=== PATIENT | female | born 1980 | race Caucasian/White ===

== ENCOUNTER 2016-04-13 21:30 | Emergency (ER) | payer MEDICAID ==
[~2016-04-13] VITALS: Ht 172.7 cm; Wt 99.8 kg
[2016-04-13 21:57] VITALS: BP 146/79
--- NOTE | 2016-04-13 21:58 | NUR ---
PT WAS ASSESS IN TRIAGE BY ER MD DR SQUIRES. DR SQUIRES STATES PT IS NOT ACTIVELY HAVING A STROKE, PT SENT BACK TO [facility]
--- NOTE | 2016-04-13 23:18 | NUR ---
PT TAKEN TO BED 3
--- NOTE | 2016-04-13 23:24 | NUR ---
Dr. Clay evaluating patient at bedside.
[2016-04-13] MEDS ORDERED: NACL 0.9% 1,000 ML IV SCH (23:26)
[2016-04-13] MEDS ORDERED: ONDANSETRON 4 MG/2 ML VIAL IVP ONE (23:30)
[2016-04-13] MEDS ORDERED: HYDROmorphone 1 MG/ML AMP IVP ONE (23:30)
--- NOTE | 2016-04-13 23:38 | NUR ---
PATIENT PRESENTS TO ED WITH LANCASTER SINCE WEDNESDAY . PT DENIES N/V/D; SKIN IS PINK/WARM/DRY; AAOX4 WITH EVEN AND STEADY GAIT; LUNGS CLEAR BL; HR EVEN AND REGULAR; PT DENIES ANY FEVER, CP, SOB, OR COUGH AT THIS TIME; PATIENT STATES PAIN OF 10/10 AT THIS TIME; VSS; PATIENT POSITIONED FOR COMFORT; HOB ELEVATED; BEDRAILS UP X2; BED DOWN. ER MD MADE AWARE OF PT STATUS.
[2016-04-14] MEDS ORDERED: diphenhydrAMINE 50 MG/ML VIAL IVP ONE (00:20)
--- NOTE | 2016-04-14 00:43 | NUR ---
PT LEFT FOR CT VIA WC IN STABLE CONDITION
[2016-04-14 01:59] VITALS: BP 137/68
--- NOTE | 2016-04-14 01:59 | NUR ---
Patient discharged with v/s stable. Written and verbal after care instructions given and explained. Patient alert, oriented and verbalized understanding of instructions. Ambulatory with steady gait. All questions addressed prior to discharge. ID band removed. Patient advised to follow up with PMD. Rx of Roulette and Zofran given. Patient educated on indication of medication including possible reaction and side effects. Opportunity to ask questions provided and answered.
[2016-05-10] MEDS ORDERED: CYMBALTA20 MG PO (15:59)
[2016-05-10] MEDS ORDERED: PLAQUENIL200 M1 PO (15:59)
[2016-05-11] MEDS ORDERED: IMITREX50 MG PO (12:19)
[2016-05-12] MEDS ORDERED: NORCO 10-325 T1 EACH PO (13:09)
== END 2016-04-14 00:59 | disposition home or self-care (01) ==
LOC: MED 21:30
DX: G43.909 Migraine, unspecified, not intractable, without status migrainosus (principal); E86.0 Dehydration; M32.9 Systemic lupus erythematosus, unspecified; M35.00 Sjogren syndrome, unspecified
CPT/HCPCS: 36415; 70450; 80053; 81001; 81025; 82150; 83690; 85025; 87086; 96361; 96374; 96375; 99285; J1170; J1200; J2405; J7030

== ENCOUNTER 2016-04-26 19:36 | Emergency (ER) | payer MEDICAID ==
[~2016-04-26] VITALS: Ht 152.4 cm; Wt 99.8 kg
[2016-04-26 19:41] VITALS: BP 122/71
--- NOTE | 2016-04-26 20:00 | NUR ---
TO ER BED 4
--- NOTE | 2016-04-26 20:25 | NUR ---
PATIENT PRESENTS TO ED WITH RUQ ABD PAIN WITH N/V [id number] . PT STATES THE PAIN IS RADIATING TO HER RIGHT SHOULDER. PT HAS HX OF LUPUS, GALLSTONES, AND FIBROMYALGIA . DENIES DIARRHEA; SKIN IS PINK/WARM/DRY; AAOX4 WITH EVEN AND STEADY GAIT; LUNGS CLEAR BL; HR EVEN AND REGULAR; PT DENIES ANY FEVER, CP, SOB, OR COUGH AT THIS TIME; PATIENT STATES PAIN OF 10/10 AT THIS TIME; VSS; PATIENT POSITIONED FOR COMFORT; HOB ELEVATED; BEDRAILS UP X2; BED DOWN. ER MD MADE AWARE OF PT STATUS.
[2016-04-26] MEDS ORDERED: NACL 0.9% 500 ML IV ONE (20:56)
[2016-04-26] MEDS ORDERED: HYDROmorphone 1 MG/ML AMP IVP ONE (21:00)
[2016-04-26] MEDS ORDERED: ONDANSETRON 4 MG/2 ML VIAL IVP ONE (21:00)
[2016-04-26] MEDS ORDERED: diphenhydrAMINE 50 MG/ML VIAL IVP ONE (22:10)
--- NOTE | 2016-04-26 22:28 | NUR ---
Patient appears to be resting comfortably in bed. Vital Signs within normal limits. Respirations even and unlabored. SON AT BEDSIDE
[2016-04-26] MEDS ORDERED: fentaNYL 0.05 MG/ML VIAL IVP ONE (23:00)
--- NOTE | 2016-04-26 23:28 | NUR ---
PT VERBALIZED THAT SON WILL BE DRIVING HER HOME FROM HOSPITAL AT THIS TIME
--- NOTE | 2016-04-26 23:28 | NUR ---
Patient discharged with v/s stable. Written and verbal after care instructions given and explained. Patient alert, oriented and verbalized understanding of instructions. Ambulatory with steady gait. All questions addressed prior to discharge. ID band removed. Patient advised to follow up with PMD. Rx of ZOFRAN, TRAMADOL AND NORCO given. Patient educated on indication of medication including possible reaction and side effects. Opportunity to ask questions provided and answered.
[2016-04-26 23:35] VITALS: BP 120/72
[2016-05-10] MEDS ORDERED: PLAQUENIL200 M1 PO (15:59)
[2016-05-10] MEDS ORDERED: CYMBALTA20 MG PO (15:59)
[2016-05-11] MEDS ORDERED: IMITREX50 MG PO (12:19)
[2016-05-12] MEDS ORDERED: NORCO 10-325 T1 EACH PO (13:09)
== END 2016-04-26 23:35 | disposition home or self-care (01) ==
LOC: MED 19:36
DX: R10.11 Right upper quadrant pain (principal); R03.0 Elevated blood-pressure reading, without diagnosis of hypertension; M32.9 Systemic lupus erythematosus, unspecified; M79.7 Fibromyalgia; Z87.19 Personal history of other diseases of the digestive system; Z88.8 Allergy status to other drugs, medicaments and biological substances
CPT/HCPCS: 36415; 76705; 80053; 81002; 81025; 82150; 83690; 85025; 96361; 96374; 96375; 99285; J1170; J1200; J2405; J3010; J7030; Q0092

== ENCOUNTER 2016-05-02 22:12 | Emergency (ER) | payer MEDICAID ==
[~2016-05-02] VITALS: Ht 152.4 cm; Wt 102.1 kg
[2016-05-02 22:17] VITALS: BP 133/82
--- NOTE | 2016-05-02 22:29 | NUR ---
PT TAKEN TO BED 5
--- NOTE | 2016-05-02 22:35 | NUR ---
35Y F BIB FAMILY C/O OF PAIN TO RT KNEE AND HEAD. STATES SHE 'S BEEN VOMITTING X2 DAYS.TODAY SHE PASSED OUT AND FELL ON HER KNEE. C/O OF LANCASTER. PAIN 10/10 IN SCALE. VSS; PATIENT POSITIONED FOR COMFORT; HOB ELEVATED; BEDRAILS UP X2; BED DOWN. ER MD MADE AWARE OF PT STATUS.
--- NOTE | 2016-05-02 22:50 | NUR ---
DR. MAYES AT BEDSIDE EVALUATING PT.
--- NOTE | 2016-05-02 22:50 | NUR ---
Dr. Lauren evaluating patient at bedside.
[2016-05-02] MEDS ORDERED: NACL 0.9% 1,000 ML IV ONE (22:55)
[2016-05-02] MEDS ORDERED: ONDANSETRON 4 MG/2 ML VIAL IVP ONE (22:55)
[2016-05-02] MEDS ORDERED: MORPHINE SULFATE 4 MG/ML SYR IVP ONE (22:55)
[2016-05-02] MEDS ORDERED: diphenhydrAMINE 50 MG/ML VIAL IVP ONE (23:35)
--- NOTE | 2016-05-03 00:40 | NUR ---
DR. MAYES REEVAUATING PT AT BEDSIDE
[2016-05-03] MEDS ORDERED: MORPHINE SULFATE 4 MG/ML SYR IVP ONE (00:45)
--- NOTE | 2016-05-03 01:20 | NUR ---
IV removed, catheter intact and site benign. Applied folded 4x4 gauze and tape to stop bleeding.
[2016-05-03 01:30] VITALS: BP 118/70
--- NOTE | 2016-05-03 01:30 | NUR ---
Patient discharged with v/s stable BY DR. MAYES. Written and verbal after care instructions given and explained BY DR. MAYES. Patient alert, oriented and verbalized understanding of instructions. Ambulatory with steady gait. All questions addressed prior to discharge BY DR. MAYES. ID band removed. Patient advised to follow up with PMD BY. DR. MAYES. Rx of ZOFRAN 8MG TAB 1 TAB 3 TIMES A DAY NEEDED, TRAMADOL HCL 50MG TAB 1 TAB EVERY 8 HOURS NEEDED given BY DR. MAYES. Patient educated on indication of medication including possible reaction and side effects BY. DR. MAYES. Opportunity to ask questions provided and answered BY DR. MAYES.
[2016-05-10] MEDS ORDERED: PLAQUENIL200 M1 PO (15:59)
[2016-05-10] MEDS ORDERED: CYMBALTA20 MG PO (15:59)
[2016-05-11] MEDS ORDERED: IMITREX50 MG PO (12:19)
[2016-05-12] MEDS ORDERED: NORCO 10-325 T1 EACH PO (13:09)
== END 2016-05-03 01:30 | disposition home or self-care (01) ==
LOC: MED 22:12
DX: S80.01XA Contusion of right knee, initial encounter (principal); M32.8 Other forms of systemic lupus erythematosus; W18.30XA Fall on same level, unspecified, initial encounter; Y93.89 Activity, other specified; Y92.89 Other specified places as the place of occurrence of the external cause; Y99.8 Other external cause status; Z88.8 Allergy status to other drugs, medicaments and biological substances
CPT/HCPCS: 36415; 80053; 81001; 81025; 82150; 83690; 85025; 87086; 96361; 96374; 96375; 96376; 99284; J1200; J2270; J2405; J7030

== ENCOUNTER 2016-05-10 15:43 | Inpatient (IN) | payer MEDICAID ==
[~2016-05-10] VITALS: Ht 152.4 cm; Wt 82.6 kg
[2016-05-10 15:59] VITALS: BP 121/83
[2016-05-10] MEDS ORDERED: HYDR200T5 PO (15:59)
[2016-05-10] MEDS ORDERED: DULO20EC PO (15:59)
--- NOTE | 2016-05-10 16:07 | NUR ---
Patient to bed 03.
--- NOTE | 2016-05-10 16:15 | NUR ---
PATIENT PRESENTS TO ED WITH HEADACHE S/P SYNCOPE . PT STATES . DENIES N/V/D; SKIN IS PINK/WARM/DRY; AAOX4 WITH EVEN AND STEADY GAIT; LUNGS CLEAR BL; HR EVEN AND REGULAR; PT DENIES ANY FEVER, CP, SOB, OR COUGH AT THIS TIME; PATIENT STATES PAIN OF 8/10 AT THIS TIME; VSS; PATIENT POSITIONED FOR COMFORT; HOB ELEVATED; BEDRAILS UP X2; BED DOWN. ER MD MADE AWARE OF PT STATUS.
[2016-05-10 16:31] LABS: BASOPHILS # (AUTO) 0.2 K/uL (0.00-0.22); BASOPHILS % (AUTO) 1.4 % (0.0-2.0); EOSINOPHILS # (AUTO) 0.2 K/uL (0-0.4); EOSINOPHILS % (AUTO) 1.8 % (0.0-4.0); HEMATOCRIT 34.7 % (36-48); HEMOGLOBIN 11.4 g/dL (12.0-16.0); LYMPHOCYTES % (AUTO) 18.7 % (20.5-51.1); MEAN CORPUSCULAR HEMOGLOBIN 29 pg (27-31); MEAN CORPUSCULAR HGB CONC 33 g/dL (33-37); MEAN CORPUSCULAR VOLUME 88 fL (80-94); MONOCYTES # (AUTO) 0.6 K/uL (0.8-1.0); MONOCYTES % (AUTO) 5.3 % (1.7-9.3); NEUTROPHILS # (AUTO) 7.9 K/uL (1.8-7.7); NEUTROPHILS % (AUTO) 72.8 % (42.2-75.2); PLATELET COUNT (AUTO) 335 K/uL (140-450); RED BLOOD CELL COUNT(AUTO) 3.95 MIL/uL (4.20-5.40); RED CELL DISTRIBUTION WIDTH 12.4 % (11.6-13.7); WHITE BLOOD COUNT (AUTO) 10.9 K/uL (4.8-10.8)
[2016-05-10] MEDS ORDERED: ONDANSETRON 4 MG/2 ML VIAL IVP ONE (16:45)
[2016-05-10] MEDS ORDERED: HYDROmorphone 1 MG/ML AMP IVP ONE (16:45)
[2016-05-10] MEDS ORDERED: NACL 0.9% 1,000 ML IV ONE (16:45)
[2016-05-10 16:47] LABS: ANION GAP 8.9 (8-16); CALCIUM 8.2 mg/dL (8.5-10.1); CARBON DIOXIDE 27.7 mmol/L (21-32); CREATININE 0.8 mg/dL (0.6-1.3); POTASSIUM 3.6 mmol/L (3.5-5.1)
[2016-05-10] MEDS ORDERED: HYDROmorphone 1 MG/ML AMP ONE (16:50)
[2016-05-10] MEDS ORDERED: ONDANSETRON 4 MG/2 ML VIAL ONE (16:50)
[2016-05-10 16:52] LABS: ALBUMIN 3.4 g/dL (3.4-5.0); TOTAL BILIRUBIN 0.3 mg/dL (0.0-1.0); TOTAL PROTEIN, SERUM 7.7 g/dL (6.4-8.2)
--- NOTE | 2016-05-10 17:00 | NUR ---
PT TO CT SCAN
--- NOTE | 2016-05-10 17:07 | NUR ---
PT RETURNED FROM CT
[2016-05-10] MEDS ORDERED: diphenhydrAMINE 50 MG/ML VIAL IVP ONE ×2 (17:10→18:45)
--- NOTE | 2016-05-10 17:27 | NUR ---
C/O GENERALIZED PRURITUS S/P DILAUDID FOR LANCASTER---MEDICATED WRITTEN---WILL CONTINUE TO OBSERVE---
--- NOTE | 2016-05-10 17:36 | NUR ---
Dr. Salinas evaluating patient at bedside.
[2016-05-10] MEDS ORDERED: SUMAtriptan 6 MG/0.5 ML VIAL SUBQ ONE (17:40)
[2016-05-10] MEDS ORDERED: ALBUTEROL SULFATE/IPRATROPIU 3 ML SOL IH ONE (17:45)
--- NOTE | 2016-05-10 17:45 | NUR ---
PT TO X RAY FOR A TWO VIEW
--- NOTE | 2016-05-10 17:52 | NUR ---
BACK FROM X-RAY
[2016-05-10] MEDS ORDERED: ONDANSETRON 4 MG/2 ML VIAL IVP PRN (18:25)
[2016-05-10] MEDS ORDERED: ACETAMINOPHEN 325 MG TAB PO PRN (18:25)
[2016-05-10] MEDS ORDERED: MECLIZINE 25 MG TAB PO PRN (18:30)
[2016-05-10] MEDS ORDERED: PROCHLORPERAZINE 10 MG/2 ML VIAL IVP PRN ×2 (18:45→19:05)
--- NOTE | 2016-05-10 18:54 | NUR ---
PT C/O HEADACHE--MD NOTIFIED
--- NOTE | 2016-05-10 19:03 | NUR ---
ENDORSED PLAN OF CARE TO NIGHT RN. PT REMAINS IN STABLE CONDITION
--- NOTE | 2016-05-10 19:05 | NUR ---
PER JUDITH, REPORT WAS GIVEN TO MARCY RN, ROOM 111B, CURRENTLY JUST WAITING FOR BED TO BE CLEANED ON TELE FLOOR
--- NOTE | 2016-05-10 19:05 | NUR ---
Pt report given to MARCY RN . Transfer of care at this time.
--- NOTE | 2016-05-10 19:05 | NUR ---
Patient will be admitted to care of DR LINK. Admited to TELE 111B. Will go to room 111B. Belongings list completed. Report to MARCY GARLAND .
--- NOTE | 2016-05-10 19:15 | NUR ---
REPORT GIVEN TO PAT GARLAND
[2016-05-10 19:26] LABS: CHOL/HDL RATIO 3.5 (1-4.5)
[2016-05-10 20:01] LABS: FREE T4 (FREE THYROXINE) 0.96 ng/dL (0.76-1.46); THYROID STIMULATING HORMONE 1.06 uIU/mL (0.34-3.76)
[2016-05-10 20:25] VITALS: BP 127/72
--- NOTE | 2016-05-10 20:25 | NUR ---
ADMITTED A 35F FROM ER. CAME BY LILLIE WITH C/C VOMITING AND SYNCOPE. DX: SYNCOPE AND DEHYDRATION. AAO X4. ON TELE MONITOR. AMBULATORY BUT INSTRUCTED TO CALL IF NEED TO GET UP TO BATHROOM FOR SAFETY. INITIATE HIGH RISK FOR FALL PROTOCOL. VERBALIZED UNDERSTANDING. IVF INFUSING WELL ON THE RT AC#20. CLEAR AND PATENT. SKIN INTACT. PLAN OF CARE DISCUSSED. BED ON LOW POSITION. CALL LIGHT PLACED WITHIN EASY REACH. WILL CONTINUE TO MONITOR.
[2016-05-10] MEDS: HYDROcodone/APAP 5/325 MG 1 TAB TAB PO PRN (20:41)
--- NOTE | 2016-05-10 21:50 | NUR ---
JONNIE CAROTID US DONE AT BEDSIDE. WILL FOLLOW UP RESULT.
[2016-05-10] MEDS: HYDROXYCHLOROQUINE 200 MG TAB PO SCH (22:08)
[2016-05-10] MEDS: NACL 0.9% 1,000 ML IV SCH (22:08)
[2016-05-10] MEDS ORDERED: PNEUMOCOCCAL VACCINE 23 MCG/0.5 ML VIAL IMVAC SCH (22:45)
--- NOTE | 2016-05-10 22:50 | NUR ---
ASSISTED UP TO BATHROOM . NO DIZZINESS NOTED.
[2016-05-11] VITALS (9 sets, daily range): BP systolic 113–150; BP diastolic 56–89
--- NOTE | 2016-05-11 00:15 | NUR ---
VITAL SIGNS TAKEN, ORTHOSTATIC BP TAKEN AND RECORDER.
[2016-05-11] MEDS ORDERED: PNEUMOCOCCAL VACCINE 23 MCG/0.5 ML VIAL IMVAC SCH (01:50)
--- NOTE | 2016-05-11 02:30 | NUR ---
SLEEPING WELL AT THIS TIME. NO S/S OF ANY DISCOMFORT NOTED.
[2016-05-11] MEDS: NACL 0.9% 1,000 ML IV SCH ×3 (02:44→19:59)
[2016-05-11] MEDS: HYDROcodone/APAP 5/325 MG 1 TAB TAB PO PRN ×2 (04:14→09:21)
--- NOTE | 2016-05-11 04:22 | NUR ---
SCD MACHINE APPLIED TO BOTH LOWER LEGS. PT MADE AWARE OF THE BENEFIT. VERBALIZED UNDERSTANDING.
--- NOTE | 2016-05-11 05:43 | NUR ---
HAS BEEN UP TO BATHROOM WITH STANDBY ASSISTANCE 4 L TIMES DURING THE NIGHT. NO DIZZINESS NOTED.
[2016-05-11 06:19] LABS: BASOPHILS % (AUTO) 0.5 % (0.0-2.0); EOSINOPHILS # (AUTO) 0.2 K/uL (0-0.4); EOSINOPHILS % (AUTO) 2.1 % (0.0-4.0); HEMATOCRIT 31.6 % (36-48); HEMOGLOBIN 10.2 g/dL (12.0-16.0); LYMPHOCYTES # (AUTO) 1.6 K/uL (2.5-16.5); LYMPHOCYTES % (AUTO) 18.4 % (20.5-51.1); MEAN CORPUSCULAR HEMOGLOBIN 29 pg (27-31); MEAN CORPUSCULAR HGB CONC 32 g/dL (33-37); MEAN CORPUSCULAR VOLUME 89 fL (80-94); MONOCYTES # (AUTO) 0.6 K/uL (0.8-1.0); MONOCYTES % (AUTO) 7.1 % (1.7-9.3); NEUTROPHILS # (AUTO) 6.2 K/uL (1.8-7.7); NEUTROPHILS % (AUTO) 71.9 % (42.2-75.2); PLATELET COUNT (AUTO) 294 K/uL (140-450); RED BLOOD CELL COUNT(AUTO) 3.55 MIL/uL (4.20-5.40); RED CELL DISTRIBUTION WIDTH 12.3 % (11.6-13.7); WHITE BLOOD COUNT (AUTO) 8.7 K/uL (4.8-10.8)
[2016-05-11 06:40] LABS: ANION GAP 9.8 (8-16); CALCIUM 7.8 mg/dL (8.5-10.1); CARBON DIOXIDE 25.6 mmol/L (21-32); CREATININE 0.6 mg/dL (0.6-1.3); MAGNESIUM 1.9 mg/dL (1.8-2.4); PHOSPHORUS 2.6 mg/dL (2.5-4.9); POTASSIUM 3.4 mmol/L (3.5-5.1)
[2016-05-11 06:50] LABS: INR 1.1 (0.8-1.2); PARTIAL THROMBOPLASTIN TIME 26.7 secs (22-35.6); PROTHROMBIN TIME 10.3 secs (10.8-13.4)
--- NOTE | 2016-05-11 07:15 | NUR ---
RECEIVED REPORT FROM NIGHT NURSE. PT IS AAOX4, PT ON ROOM AIR, IV TO RIGHT AC 20G INFUSING WELL. SKIN INTACT. INITIAL ASSESSMENT COMPLETED. REVIEWED PLAN OF CARE WITH PT, PT VERBALIZED UNDERSTANDING, ALL SAFETY PRECAUTIONS MET. ALL NEEDS MET. CALL LIGHT WITHIN REACH. WILL CONTINUE TO MONITOR.
--- NOTE | 2016-05-11 07:15 | NUR ---
ENDORSED PT IN STABLE CONDITION TO AM NURSE.
[2016-05-11] MEDS ORDERED: NON-FORMULARY ITEM (Duloxetine HCl* (Cymbalta*) 20 MG) PO SCH (09:00)
--- NOTE | 2016-05-11 09:09 | NUR ---
PATIENT HAS BEEN SCREENED AND CATEGORIZED MODERATE NUTRITION RISK. PATIENT WILL BE SEEN WITHIN 3-5 DAYS OF ADMISSION. 05/13/16-05/15/[address]
--- NOTE | 2016-05-11 09:20 | NUR ---
DUE MEDICATIONS GIVEN. PT TOLERATED WELL. PT C/O HEADACHE 10/01 WILL MEDICATE PER MD ORDERS PT CURRENTLY RESTING IN BED. CALL LIGHT WITHIN REACH. WILL CONTINUE TO MONITOR.
[2016-05-11] MEDS: DOCUSATE SODIUM 100 MG GELCAP PO SCH (09:22)
[2016-05-11] MEDS: HYDROXYCHLOROQUINE 200 MG TAB PO SCH ×2 (09:22→20:12)
--- NOTE | 2016-05-11 09:40 | NUR ---
RIGHT AC IV REMOVED TIP INTACT, NOT FLUSHING WELL. WILL INSERT NEW IV.
--- NOTE | 2016-05-11 10:46 | NUR ---
NEW IV INSERTED TO RIGHT FA 22G. PT TOLERATED WELL.
--- NOTE | 2016-05-11 11:25 | NUR ---
CHECKED IN ON PT. PT CURRENTLY AWAKE. ALL NEEDS MET. CALL LIGHT WITHIN REACH. WITHIN REACH. WILL CONTINUE TO MONITOR.
[2016-05-11] MEDS: diphenhydrAMINE 50 MG/ML VIAL IVP PRN ×2 (12:17→19:57)
[2016-05-11] MEDS ORDERED: IMI50 PO (12:19)
[2016-05-11] MEDS ORDERED: SUMAtriptan 50 MG TAB PO PRN (12:30)
[2016-05-11] MEDS ORDERED: POTASSIUM CHLORIDE 10 MEQ TABER PO SCH (12:46)
--- NOTE | 2016-05-11 13:26 | NUR ---
FAXED INITIAL REVIEW TO CRISTIAN [phone] PHONE POOJA,
[2016-05-11 14:55] LABS: APPEARANCE,URINE CLEAR (CLEAR); BILIRUBIN,URINE NEGATIVE (NEGATIVE); BLOOD, URINE NEGATIVE (NEGATIVE); LEUKOCYTE ESTERASE ,URINE NEGATIVE (NEGATIVE); NITRITE, URINE NEGATIVE (NEGATIVE); PH,URINE 6.5 (5.0-9.0); PROTEIN,URINE NEGATIVE (NEGATIVE); UGLUCOSE NEGATIVE (NEGATIVE); UROBILINOGEN,URINE 0.2 EU/dL (0.2 - 1)
[2016-05-11 14:59] LABS: COLOR,URINE STRAW (YELLOW)
[2016-05-11 15:02] LABS: AMPHETAMINE, URINE NEG. ng/ml (NEG <=1000); BARBITURATE, URINE NEG. ng/ml (NEG <=200); BENZODIAZEPINE, URINE NEG. ng/mL (NEG <=200); CANNABINOID, URINE NEG. ng/mL (NEG <=50); COCAINE, URINE NEG. ng/mL (NEG <=300); OPIATE, URINE NEG. ng/mL (NEG <=2000); PHENCYCLIDINE SCREEN,URINE NEG. ng/mL (NEG <=25)
[2016-05-11] MEDS: KETOROLAC 30 MG/ML VIAL IVP PRN ×2 (15:13→21:57)
--- NOTE | 2016-05-11 15:13 | NUR ---
PT C/O OF HEADACHE WILL MEDICATED PER MD ORDERS. ALL NEEDS MET CALL LIGHT WITHIN REACH. WILL CONTINUE TO MONITOR
[2016-05-11 15:30] LABS: BACTERIA,URINE RARE /HPF (None Seen); RBC,URINE NONE SEEN /HPF (0-5); SQUAMOUS EPITHELIAL CELL,UR RARE /LPF (0-3 (FEW)); WBC,URINE NONE SEEN /HPF (0-5)
[2016-05-11] MEDS: HYDROcodone/APAP 10/325 MG 1 TAB TAB PO PRN ×2 (16:56→23:25)
--- NOTE | 2016-05-11 16:56 | NUR ---
PT STATES THE PREVIOUS PAIN MEDICATION DID NOT HELP. CONTINUES TO HAVE HEADACHE, MEDICATED PER MD ORDERS. ASSISTED PT TO RESTROOM, ALL NEEDS MET. CALL LIGHT WITHIN REACH.
--- NOTE | 2016-05-11 19:05 | NUR ---
ENDORSED PLAN OF CARE TO NIGHT NURSE PT IN STABLE CONDITION.
--- NOTE | 2016-05-11 19:18 | NUR ---
RECEIVED REPORT FROM DADA JOHNSTON, AT BEDSIDE. INITIAL ASSESSMENT AND BODY CHECK DONE. PATIENT AAO X 4, ABLE TO FOLLOW COMMAND AND MAKE NEEDS KNOWN AND AMBULATORY. PATIENT CURRENTLY LYING DOWN ON THE BED AND WATCHING TV. NO S/S OF DISTRESS OR SOB NOTED. PAIN UNDER CONTROL, BUT STILL C/O SOME ITCHING AT THIS TIME. SKIN WARM/DRY TO TOUCH WITH NORMAL COLOR AND INTACT. DISCUSSED PLAN OF CARE, PAIN MANAGEMENT AND MEDICATION REGIMEN WITH PATIENT AND PATIENT VERBALIZED UNDERSTANDING. PLACED PATIENT ON SAFETY/FALL PRECAUTIONS AND WILL CONTINUE TO MONITOR. CALL LIGHT LEFT WITHIN REACH.
--- NOTE | 2016-05-11 20:58 | NUR ---
ADMINISTERED DUE AND PRN MEDICATIONS MD'S ORDERED WITH EDUCATION GIVEN. PATIENT COMPLYING WITH MEDICATIONS AND TOLERATED WELL. ALL NEEDS ARE ATTENDED. KEPT PATIENT IN COMFORTABLE POSITION/WARM AND WILL CONTINUE TO MONITOR.
[2016-05-11] MEDS ORDERED: SIMVASTATIN 10 MG TAB PO SCH (21:00)
--- NOTE | 2016-05-11 23:06 | NUR ---
ROUNDS MADE, SEEN PATIENT RESTED QUIETLY IN BED AND NO CHANGED IN CONDITION NOTED. WILL CONTINUE TO MONITOR.
--- NOTE | 2016-05-12 01:30 | NUR ---
PATIENT IS CLINICALLY STABLE WITH UNCHANGED V/S. WILL CONTINUE TO MONITOR.
[2016-05-12] MEDS: NACL 0.9% 1,000 ML IV SCH ×2 (03:28→12:04)
[2016-05-12] MEDS: diphenhydrAMINE 50 MG/ML VIAL IVP PRN ×3 (03:50→15:57)
[2016-05-12 04:00] VITALS: BP 128/70
--- NOTE | 2016-05-12 04:05 | NUR ---
PATIENT AWAKE, C/O ITCHING AND ASKED FOR SOME SNACKS. GAVE BENADRYL AND 2 PACKS OF CRACKER/ 1 CUP OF JELL-O. V/S REMAINED WNL AND NO APPARENT DISTRESS NOTED. WILL CONTINUE TO MONITOR.
[2016-05-12 06:17] LABS: BASOPHILS # (AUTO) 0.1 K/uL (0.00-0.22); BASOPHILS % (AUTO) 0.9 % (0.0-2.0); EOSINOPHILS # (AUTO) 0.2 K/uL (0-0.4); EOSINOPHILS % (AUTO) 1.8 % (0.0-4.0); HEMATOCRIT 31.2 % (36-48); HEMOGLOBIN 10.3 g/dL (12.0-16.0); LYMPHOCYTES # (AUTO) 1.9 K/uL (2.5-16.5); LYMPHOCYTES % (AUTO) 22.3 % (20.5-51.1); MEAN CORPUSCULAR HEMOGLOBIN 29 pg (27-31); MEAN CORPUSCULAR HGB CONC 33 g/dL (33-37); MEAN CORPUSCULAR VOLUME 89 fL (80-94); MONOCYTES # (AUTO) 0.8 K/uL (0.8-1.0); MONOCYTES % (AUTO) 9.2 % (1.7-9.3); NEUTROPHILS # (AUTO) 5.7 K/uL (1.8-7.7); NEUTROPHILS % (AUTO) 65.8 % (42.2-75.2); PLATELET COUNT (AUTO) 296 K/uL (140-450); RED BLOOD CELL COUNT(AUTO) 3.51 MIL/uL (4.20-5.40); RED CELL DISTRIBUTION WIDTH 12.3 % (11.6-13.7); WHITE BLOOD COUNT (AUTO) 8.7 K/uL (4.8-10.8)
[2016-05-12 06:31] LABS: ALBUMIN 2.8 g/dL (3.4-5.0); MAGNESIUM 1.7 mg/dL (1.8-2.4); PHOSPHORUS 2.4 mg/dL (2.5-4.9)
[2016-05-12] MEDS: HYDROcodone/APAP 10/325 MG 1 TAB TAB PO PRN ×2 (06:35→12:29)
[2016-05-12 06:36] LABS: ANION GAP 9.9 (8-16); CALCIUM 7.8 mg/dL (8.5-10.1); CARBON DIOXIDE 25.4 mmol/L (21-32); CREATININE 0.7 mg/dL (0.6-1.3); POTASSIUM 3.3 mmol/L (3.5-5.1)
--- NOTE | 2016-05-12 07:10 | NUR ---
RECEIVED PT FROM DADA PORTILLO. PT SEEN AT BEDSIDE; AAOX4, ON ROOM AIR WITH NO S/S DISTRESS OR SOB. PT DENIES NAUSEA OR DIZZINESS AT THIS TIME. PT ON TELE MONITORING RUNNING SR AT THIS TIME. PT HAS RIGHT FA 22G IV RUNNING IVF AT THIS TIME. SKIN INTACT, WARM, AND DRY. SCD'S ON AT THIS TIME ON BLE. PT C/O GENERALIZED ITCHINESS AT THIS TIME. NOTIFIED PATIENT TO LET RN KNOW IF SHE FEELS ANY DIZZINESS. SAFETY MEASURES CHECKED, CALL LIGHT LEFT AT BEDSIDE. WILL CONTINUE TO MONITOR.
--- NOTE | 2016-05-12 07:17 | NUR ---
ENDORSED PLAN OF CARE TO DADA AJCOME, AT BEDSIDE. PATIENT RESTED WELL AND REMAINED IN STABLE CONDITION. NO S/S OF DISTRESS NOTED.
[2016-05-12 08:00] VITALS: BP 130/69
--- NOTE | 2016-05-12 08:07 | NUR ---
NOTIFIED DR. LA THAT PT IS C/O ITCHINESS AND WANTS FREQ OF BENADRYL CHANGED. MD AWARE AND WILL PUT IN NEW ORDERS. WILL FOLLOW UP.
[2016-05-12] MEDS: DOCUSATE SODIUM 100 MG GELCAP PO SCH (08:26)
[2016-05-12] MEDS: HYDROXYCHLOROQUINE 200 MG TAB PO SCH (08:26)
[2016-05-12] MEDS ORDERED: ASPIRIN 81 MG TAB.CHEW PO SCH (09:00)
--- NOTE | 2016-05-12 10:03 | NUR ---
PT C/O ITCHINESS. BENADRYL ADMINISTERED ORDERED. WILL CONTINUE TO MONITOR.
[2016-05-12] MEDS: KETOROLAC 30 MG/ML VIAL IVP PRN (11:01)
--- NOTE | 2016-05-12 11:04 | NUR ---
PT C/O SEVERE PAIN FROM GALLSTONES. TORADOL ADMINISTERED.
--- NOTE | 2016-05-12 11:50 | NUR ---
DR LA NOTIFIED THAT PATIENT IS HAVING EXTREME PAIN D/T GALLSTONES. STATED HE WILL TALK WITH PATIENT.
[2016-05-12 12:00] VITALS: BP 129/80
[2016-05-12] MEDS ORDERED: ACET-2858 PO (13:09)
[2016-05-12 13:24] VITALS: BP 129/80
--- NOTE | 2016-05-12 13:27 | NUR ---
FAXED CONCURRENT REVIEW TO CRISTIAN [phone] PHONE POOJA [phone]
--- NOTE | 2016-05-12 14:31 | NUR ---
DISCHARGE EDUCATION GIVEN TO PATIENT. PT VERBALIZED UNDERSTANDING AND SIGNED. PNA VACCINE GIVEN TO PATIENT. PT TOLERATED WELL. PER PT, HER RIDE WILL NOT BE HERE UNTIL 4:30PM. TOLD PT TO LET RN KNOW IF SHE HAS ANY QUESTIONS. PT VERBALIZED UNDERSTANDING.
[2016-05-12 16:00] VITALS: BP 146/77
--- NOTE | 2016-05-12 16:02 | NUR ---
PT STATES THAT HER COUSIN WILL BE HERE SOON TO PICK HER UP.
--- NOTE | 2016-05-12 16:30 | NUR ---
IV REMOVED, TELE MONITOR TAKEN OFF PATIENT, WRIST BANDS REMOVED. PT STATES HER RIDE IS HERE. PT WHEELCHAIRED TO FRONT WITH DADA OLSON.
== END 2016-05-12 16:40 | disposition home or self-care (01) | DRG 48 ==
LOC: MED 15:43 → MTU 18:12
PROVIDERS: ADMIT Student in an Organized Health Care Education/Training Program; ATTEND Student in an Organized Health Care Education/Training Program
DX: G90.8 Other disorders of autonomic nervous system (principal); N17.0 Acute kidney failure with tubular necrosis; E43 Unspecified severe protein-calorie malnutrition; S09.90XA Unspecified injury of head, initial encounter; M32.9 Systemic lupus erythematosus, unspecified; E83.39 Other disorders of phosphorus metabolism; E83.42 Hypomagnesemia; R55 Syncope and collapse; G43.909 Migraine, unspecified, not intractable, without status migrainosus; M79.7 Fibromyalgia; E86.0 Dehydration; R06.00 Dyspnea, unspecified; E87.6 Hypokalemia; E78.5 Hyperlipidemia, unspecified; Z68.35 Body mass index [BMI] 35.0-35.9, adult; Z98.890 Other specified postprocedural states; Z88.8 Allergy status to other drugs, medicaments and biological substances; Z88.1 Allergy status to other antibiotic agents; Z87.442 Personal history of urinary calculi; Z83.3 Family history of diabetes mellitus
CPT/HCPCS: 36415; 70450; 71020; 80048; 80053; 80305; 81001; 82040; 83036; 83690; 83735; 83880; 84100; 84439; 84443; 84484; 85025; 85610; 85730; 87081; 90732; 93005; 93880; 94640; 96361; 96372; 96374; 96375; 99285; J0780; J1170; J1200; J1885; J2405; J3030; J7030; J7620; Q0092

== ENCOUNTER 2016-06-05 22:44 | Emergency (ER) | payer MEDICAID ==
[~2016-06-05] VITALS: Ht 154.9 cm; Wt 99.8 kg
[~2016-06-05 22:44] MED LIST: ACET-2858 PO; DULO20EC PO; HYDR200T5 PO; IMI50 PO
[2016-06-05 22:54] VITALS: BP 131/89
--- NOTE | 2016-06-05 23:07 | NUR ---
Juliann lópez in [facility] - 06/05/16 at 2308 by WEST PT TAKEN TO BED 6
--- NOTE | 2016-06-05 23:07 | NUR ---
PT TAKEN TO BED 4
--- NOTE | 2016-06-05 23:12 | NUR ---
35 Y/O F W/C/O R ABD PAIN , N/V, AND CHILLS X TODAY. PT STATES HAS A HX OF GALL STONES AND HAS AN UPCOMING APPT WITH SURGEON. S/S OF PAIN NOTED ER MADE AWARE.
--- NOTE | 2016-06-05 23:12 | NUR ---
Dr. Lauren evaluating patient at bedside.
[2016-06-05] MEDS ORDERED: MORPHINE SULFATE 10 MG/ML SYR IVP ONE (23:30)
[2016-06-05] MEDS ORDERED: NACL 0.9% 1,000 ML IV ONE (23:30)
[2016-06-05] MEDS ORDERED: ONDANSETRON 4 MG/2 ML VIAL IVP ONE (23:30)
[2016-06-06] MEDS ORDERED: diphenhydrAMINE 50 MG/ML VIAL IVP ONE (00:05)
[2016-06-06 00:11] LABS: APPEARANCE,URINE HAZY (CLEAR); BILIRUBIN,URINE NEGATIVE (NEGATIVE); BLOOD, URINE NEGATIVE (NEGATIVE); COLOR,URINE YELLOW (YELLOW); LEUKOCYTE ESTERASE ,URINE NEGATIVE (NEGATIVE); NITRITE, URINE NEGATIVE (NEGATIVE); PH,URINE 6.5 (5.0-9.0); PROTEIN,URINE NEGATIVE (NEGATIVE); UGLUCOSE NEGATIVE (NEGATIVE); UROBILINOGEN,URINE 0.2 EU/dL (0.2 - 1)
--- NOTE | 2016-06-06 00:12 | NUR ---
Juliann lópez in [facility] - 06/06/16 at [address] Lauren evaluating patient at bedside.
[2016-06-06 00:16] LABS: BASOPHILS # (AUTO) 0.2 K/uL (0.00-0.22); EOSINOPHILS # (AUTO) 0.2 K/uL (0-0.4); EOSINOPHILS % (AUTO) 1.9 % (0.0-4.0); HEMATOCRIT 33.1 % (36-48); HEMOGLOBIN 10.6 g/dL (12.0-16.0); LYMPHOCYTES % (AUTO) 21.5 % (20.5-51.1); MEAN CORPUSCULAR HEMOGLOBIN 28 pg (27-31); MEAN CORPUSCULAR HGB CONC 32 g/dL (33-37); MEAN CORPUSCULAR VOLUME 89 fL (80-94); MONOCYTES # (AUTO) 0.7 K/uL (0.8-1.0); MONOCYTES % (AUTO) 7.5 % (1.7-9.3); NEUTROPHILS % (AUTO) 67.1 % (42.2-75.2); PLATELET COUNT (AUTO) 231 K/uL (140-450); RED BLOOD CELL COUNT(AUTO) 3.73 MIL/uL (4.20-5.40); RED CELL DISTRIBUTION WIDTH 13.2 % (11.6-13.7); WHITE BLOOD COUNT (AUTO) 9.1 K/uL (4.8-10.8)
[2016-06-06 00:24] LABS: BACTERIA,URINE OCCASSIONAL /HPF (None Seen); MUCUS,URINE 1+ /LPF (None Seen); RBC,URINE 0-5 (RARE) /HPF (0-5); WBC,URINE 0-5 (RARE) /HPF (0-5)
[2016-06-06 00:27] LABS: ANION GAP 9.2 (8-16); CALCIUM 8.4 mg/dL (8.5-10.1); CARBON DIOXIDE 28.6 mmol/L (21-32); CREATININE 0.7 mg/dL (0.6-1.3); POTASSIUM 3.8 mmol/L (3.5-5.1)
[2016-06-06 00:33] LABS: ALBUMIN 3.1 g/dL (3.4-5.0); TOTAL BILIRUBIN 0.2 mg/dL (0.0-1.0); TOTAL PROTEIN, SERUM 6.6 g/dL (6.4-8.2)
[2016-06-06 01:55] VITALS: BP 130/78
--- NOTE | 2016-06-06 01:55 | NUR ---
Patient discharged with v/s stable. Written and verbal after care instructions given and explained. Patient alert, oriented and verbalized understanding of instructions. Ambulatory with steady gait. All questions addressed prior to discharge. ID band removed. Patient advised to follow up with PMD NEXT WK OR RETURN TO ER IF CONDITION WORSENS. Rx of TRAMADOL, AND ZOFRAN given. Patient educated on indication of medication including possible reaction and side effects. Opportunity to ask questions provided and answered.
== END 2016-06-06 01:55 | disposition home or self-care (01) ==
LOC: MED 22:44
DX: K80.20 Calculus of gallbladder without cholecystitis without obstruction (principal); I10 Essential (primary) hypertension; Z88.6 Allergy status to analgesic agent; Z88.8 Allergy status to other drugs, medicaments and biological substances
CPT/HCPCS: 36415; 80053; 81001; 81025; 82150; 83690; 85025; 96361; 96374; 96375; 99284; J1200; J2270; J2405; J7030

== ENCOUNTER 2016-06-28 21:31 | Emergency (ER) | payer MEDICAID ==
[~2016-06-28] VITALS: Ht 152.4 cm; Wt 95.3 kg
[~2016-06-28 21:31] MED LIST changes: -ACET-2858 PO; +CYMBALTA20 MG PO; -DULO20EC PO; -HYDR200T5 PO; -IMI50 PO; +IMITREX50 MG PO; +NORCO 10-325 T1 EACH PO; +PLAQUENIL200 M1 PO
[2016-06-28 21:44] VITALS: BP 157/91
--- NOTE | 2016-06-28 22:51 | NUR ---
Patient to OF2
--- NOTE | 2016-06-28 23:07 | NUR ---
35 Y/O F W/C/O HEADACHES X 1 DAY, WORSENING TODAY CAUSING FORGETFULNESS AND DISORENTATION . PT LAERT AND ORIENTED X 4 AT THE MOMENT, ER MD MADE AWARE.
--- NOTE | 2016-06-28 23:12 | NUR ---
PA student evaluating patient.
[2016-06-28] MEDS ORDERED: DEXAMETHASONE 4 MG/ML VIAL PO ONE (23:20)
[2016-06-28] MEDS ORDERED: METOCLOPRAMIDE 10 MG TAB PO ONE (23:20)
--- NOTE | 2016-06-28 23:24 | NUR ---
Dr. Plaza evaluating patient.
--- NOTE | 2016-06-28 23:51 | NUR ---
Patient back from CT via wheelchair per tech.
[2016-06-29] MEDS ORDERED: HYDROcodone/APAP 5/325 MG 1 TAB TAB PO ONE (00:05)
[2016-06-29] MEDS ORDERED: KETOROLAC 30 MG/ML VIAL IM ONE (00:55)
[2016-06-29] MEDS ORDERED: ONDANSETRON 4 MG ODT PO ONE (01:05)
[2016-06-29] MEDS ORDERED: MORPHINE SULFATE 4 MG/ML SYR IM ONE (01:05)
[2016-06-29 01:37] VITALS: BP 117/72
--- NOTE | 2016-06-29 01:37 | NUR ---
Patient discharged with v/s stable. Written and verbal after care instructions given and explained. Patient alert, oriented and verbalized understanding of instructions. Ambulatory with steady gait. All questions addressed prior to discharge. ID band removed. Patient advised to follow up with PMD OR RETURN TO ER IF CONDITION WORSENS. Rx of NORCO 5MG given. Patient educated on indication of medication including possible reaction and side effects. Opportunity to ask questions provided and answered.
== END 2016-06-29 01:37 | disposition home or self-care (01) ==
LOC: MED 21:31
DX: R51 Headache (principal); R10.9 Unspecified abdominal pain; I10 Essential (primary) hypertension; Z88.1 Allergy status to other antibiotic agents; Z88.8 Allergy status to other drugs, medicaments and biological substances
CPT/HCPCS: 36415; 70450; 80053; 80305; 81001; 81025; 84484; 85025; 93005; 96372; 99285; G0482; J1100; J2270; J8597; Q0163; S0119

== ENCOUNTER 2016-07-21 19:01 | Emergency (ER) | payer MEDICAID ==
[~2016-07-21] VITALS: Ht 152.4 cm; Wt 90.7 kg
[2016-07-21 19:06] VITALS: BP 143/80
--- NOTE | 2016-07-21 19:35 | NUR ---
PATIENT TO ER BED 5
--- NOTE | 2016-07-21 19:35 | NUR ---
35Y F BIB SELF C/O ABDOMINAL PAIN AND DYSURIA SINCE THIS AM. HX SLE. PT STATES SHE HAD 6 EPISODES OF VOMIT WITH BLOOD. PAIN IS R SIDE PELVIC RADIATED TO THE BACK. 9/10 PAIN.
[2016-07-21] MEDS ORDERED: ONDANSETRON 4 MG/2 ML VIAL IVP ONE (19:55)
[2016-07-21] MEDS ORDERED: NACL 0.9% 1,000 ML IV ONE (19:55)
[2016-07-21] MEDS ORDERED: MORPHINE SULFATE 4 MG/ML SYR IVP ONE (19:55)
[2016-07-21] MEDS ORDERED: diphenhydrAMINE 50 MG/ML VIAL IVP ONE ×3 (20:35→23:55)
[2016-07-21] MEDS ORDERED: MORPHINE SULFATE 2 MG/ML SYR IVP ONE (21:45)
--- NOTE | 2016-07-21 23:25 | NUR ---
BENADRYL MEDICATION WAS ADMINISTERED. IV INFILTRATED. PT DID NOT GET MEDICATION COMPLETELY. ER MD DR DIEHL AWARE, WILL ORDER BENADRYL AGAIN
[2016-07-22 01:55] VITALS: BP 132/84
--- NOTE | 2016-07-22 01:55 | NUR ---
IV removed, catheter intact and site benign. Applied folded 4x4 gauze and tape to stop bleeding.
--- NOTE | 2016-07-22 01:55 | NUR ---
Patient discharged with v/s stable. Written and verbal after care instructions given and explained. Patient alert, oriented and verbalized understanding of instructions. Ambulatory with steady gait. All questions addressed prior to discharge. ID band removed. Patient advised to follow up with PMD. Rx of OMEPRAZOLE 40MG AND TRAMADOL 50MG given. Patient educated on indication of medication including possible reaction and side effects. Opportunity to ask questions provided and answered.
== END 2016-07-22 01:55 | disposition home or self-care (01) ==
LOC: MED 19:01
DX: K27.9 Peptic ulcer, site unspecified, unspecified as acute or chronic, without hemorrhage or perforation (principal); I10 Essential (primary) hypertension; Z88.6 Allergy status to analgesic agent; Z88.8 Allergy status to other drugs, medicaments and biological substances
CPT/HCPCS: 36415; 74176; 80053; 81001; 81025; 82150; 83690; 84703; 85025; 87086; 96361; 96374; 96375; 96376; 99285; J1200; J2270; J2405

== ENCOUNTER 2016-07-30 23:13 | Inpatient (IN) | payer MEDICAID ==
[~2016-07-30] VITALS: Ht 152.4 cm; Wt 90.7 kg
[~2016-07-30 23:13] MED LIST changes: +ACET-2858 PO; -CYMBALTA20 MG PO; +DULO20EC PO; +HYDR200T5 PO; +IMI50 PO; -IMITREX50 MG PO; -NORCO 10-325 T1 EACH PO; -PLAQUENIL200 M1 PO
[2016-07-30 23:21] VITALS: BP 136/72
--- NOTE | 2016-07-30 23:30 | NUR ---
Patient ambulated to bed 05.
--- NOTE | 2016-07-30 23:40 | NUR ---
PATIENT PRESENTS TO ED WITH C/O BODY ACHES ALL OVER PLUS VOMIT X 1 DAY 10/10 PAIN . PT STATES SHE TOOK NORCO AND MOTRIN AT HOME BUT NO RELIEF ; SKIN IS PINK/WARM/DRY; AAOX4 WITH EVEN AND STEADY GAIT; LUNGS CLEAR BL; HR EVEN AND REGULAR; PT DENIES ANY FEVER, SOB, OR COUGH AT THIS TIME; PATIENT STATES PAIN OF 10/10 AT THIS TIME; VSS; PATIENT POSITIONED FOR COMFORT; HOB ELEVATED; BEDRAILS UP X2; BED DOWN. ER MD MADE AWARE OF PT STATUS.
[2016-07-30] MEDS ORDERED: NACL 0.9% 1,000 ML IV ONE (23:45)
[2016-07-30] MEDS ORDERED: ONDANSETRON 4 MG/2 ML VIAL IVP ONE (23:45)
[2016-07-30] MEDS ORDERED: MORPHINE SULFATE 2 MG/ML SYR IVP ONE (23:45)
--- NOTE | 2016-07-31 00:06 | NUR ---
Juliann lópez in [facility] - 07/31/16 at 0009 by RAYMUNDO XRAY at bedside.
[2016-07-31 00:16] LABS: ANION GAP 8.4 (8-16); CALCIUM 8.5 mg/dL (8.5-10.1); CARBON DIOXIDE 27.1 mmol/L (21-32); CREATININE 0.8 mg/dL (0.6-1.3); POTASSIUM 3.5 mmol/L (3.5-5.1)
[2016-07-31] MEDS ORDERED: MORPHINE SULFATE 2 MG/ML SYR IM ONE (00:20)
[2016-07-31] MEDS ORDERED: ONDANSETRON 4 MG/2 ML VIAL IM ONE (00:20)
[2016-07-31 00:22] LABS: ALBUMIN 3.1 g/dL (3.4-5.0)
[2016-07-31 00:22] LABS: BILIRUBIN,URINE NEGATIVE (NEGATIVE); BLOOD, URINE TRACE-I (NEGATIVE); COLOR,URINE YELLOW (YELLOW); LEUKOCYTE ESTERASE ,URINE NEGATIVE (NEGATIVE); NITRITE, URINE NEGATIVE (NEGATIVE); PH,URINE 5.5 (5.0-9.0); PROTEIN,URINE NEGATIVE (NEGATIVE); UGLUCOSE NEGATIVE (NEGATIVE); UROBILINOGEN,URINE 0.2 EU/dL (0.2 - 1)
[2016-07-31 00:28] LABS: BASOPHILS # (AUTO) 0.1 K/uL (0.00-0.22); BASOPHILS % (AUTO) 1.8 % (0.0-2.0); EOSINOPHILS # (AUTO) 0.3 K/uL (0-0.4); EOSINOPHILS % (AUTO) 4.8 % (0.0-4.0); HEMATOCRIT 29.6 % (36-48); HEMOGLOBIN 9.7 g/dL (12.0-16.0); LYMPHOCYTES # (AUTO) 1.7 K/uL (2.5-16.5); MEAN CORPUSCULAR HEMOGLOBIN 28 pg (27-31); MEAN CORPUSCULAR HGB CONC 33 g/dL (33-37); MEAN CORPUSCULAR VOLUME 87 fL (80-94); MONOCYTES # (AUTO) 0.5 K/uL (0.8-1.0); MONOCYTES % (AUTO) 8.5 % (1.7-9.3); NEUTROPHILS # (AUTO) 3.6 K/uL (1.8-7.7); NEUTROPHILS % (AUTO) 57.9 % (42.2-75.2); PLATELET COUNT (AUTO) 231 K/uL (140-450); RED BLOOD CELL COUNT(AUTO) 3.42 MIL/uL (4.20-5.40); RED CELL DISTRIBUTION WIDTH 13.6 % (11.6-13.7); WHITE BLOOD COUNT (AUTO) 6.2 K/uL (4.8-10.8)
[2016-07-31 00:28] LABS: APPEARANCE,URINE SLIGHTLY HAZY (CLEAR)
[2016-07-31 00:31] LABS: BACTERIA,URINE OCCASSIONAL /HPF (None Seen); RBC,URINE 3-10 (FEW) /HPF (0-5); WBC,URINE 0-5 (RARE) /HPF (0-5)
[2016-07-31 00:32] LABS: PARTIAL THROMBOPLASTIN TIME 22.4 secs (22-35.6); PROTHROMBIN TIME 9.5 secs (10.8-13.4)
[2016-07-31 00:33] LABS: TOTAL BILIRUBIN 0.1 mg/dL (0.0-1.0)
[2016-07-31] MEDS ORDERED: HYDROCORTISONE NA SUCC 100 MG/2 ML VIAL IV ONE (00:35)
[2016-07-31] MEDS ORDERED: PIPERACILLIN/TAZOBACTAM 3.375 GM in DEXTROSE 5% 50 ML IV ONE (00:35)
[2016-07-31] MEDS ORDERED: diphenhydrAMINE 50 MG/ML VIAL IVP ONE (00:35)
[2016-07-31] MEDS ORDERED: diphenhydrAMINE 50 MG/ML VIAL ONE (00:37)
[2016-07-31] MEDS ORDERED: PIPERACILLIN/TAZOBACTAM 3.375 GM VIAL IV ONE (00:49)
[2016-07-31] MEDS ORDERED: ONDANSETRON 4 MG/2 ML VIAL IVP PRN (00:50)
[2016-07-31] MEDS ORDERED: HYDROcodone/APAP 5/325 MG 1 TAB TAB PO PRN (00:50)
[2016-07-31] MEDS ORDERED: ACETAMINOPHEN 325 MG TAB PO PRN (00:50)
[2016-07-31] MEDS ORDERED: DOCUSATE SODIUM 100 MG GELCAP PO PRN (00:50)
[2016-07-31] MEDS ORDERED: HYDROCORTISONE NA SUCC 100 MG/2 ML VIAL ONE ×2 (00:52→00:53)
--- NOTE | 2016-07-31 00:55 | NUR ---
Patient will be admitted to care of DR MCLEAN. Admited to TELE 106A. Will go to room 106A. Belongings list completed. Report to DENZEL GARLAND .
--- NOTE | 2016-07-31 00:55 | NUR ---
ROSANGELA NOT AVAILABLE, WOOD WILL BRING TO ER
[2016-07-31] MEDS ORDERED: SUMAtriptan 50 MG TAB PO PRN (01:00)
[2016-07-31 01:10] VITALS: BP 119/76
--- NOTE | 2016-07-31 01:10 | NUR ---
ADMITTED THIS 35 YEAR OLD FEMALE FROM ER WITH DX OF LUPUS FLARE UP, ASSESSMENT DONE, VITAL SIGNS STABLE, SR ON TELE, 12/01 GENERALIZED PAIN AT THIS TIME, WILL MEDICATE PRN, SKIN INTACT WITH BRUISES TO ARMS AND LEGS, ORIENTED TO ROOM AND CALL LIGHT, INSTRUCTED NPO EXCEPT MEDS, SAFETY MEASURES IN PLACE, CALL LIGHT WITHIN REACH.
--- NOTE | 2016-07-31 01:50 | NUR ---
AMBULATORY TO BR WITH STEADY GAIT, VOIDING FREELY, NO SIGNS OF SOB NOTED, ALL NEEDS ATTENDED.
[2016-07-31] MEDS: MORPHINE SULFATE 2 MG/ML SYR IVP PRN ×4 (02:24→16:41)
--- NOTE | 2016-07-31 02:25 | NUR ---
MEDICATED PRN FOR GENERALIZED PAIN WITH MORPHINE IVP, REFUSED PO BENADRYL FOR ITCHINESS, PREFER IVP, WILL PAGED DR MCLEAN, PT MONITORED CLOSELY.
[2016-07-31] MEDS: NACL 0.9% 500 ML IV SCH ×4 (02:30→15:49)
[2016-07-31] MEDS ORDERED: diphenhydrAMINE 50 MG/ML VIAL IVP SCH ×2 (02:50→11:15)
[2016-07-31 02:57] LABS: CHOL/HDL RATIO 4.6 (1-4.5); FREE T4 (FREE THYROXINE) 0.82 ng/dL (0.76-1.46); PHOSPHORUS 3.1 mg/dL (2.5-4.9); THYROID STIMULATING HORMONE 5.94 uIU/mL (0.34-3.76)
--- NOTE | 2016-07-31 03:00 | NUR ---
VITAL SIGNS STABLE, MEDICATED WITH BENADRYL IVP FOR ITCHINESS, VERBALIZED PAIN IS BETTER, IVF INFUSING WELL.
[2016-07-31 04:00] VITALS: BP 145/78
[2016-07-31] MEDS ORDERED: methylPREDNISolone SS 125 MG/2 ML VIAL IVP SCH (05:00)
--- NOTE | 2016-07-31 05:00 | NUR ---
1ST DOSE OF SOLUMEDROL IVP GIVEN WITH EDUCATION PROVIDED, PT AMBULATED TO BR WITH STEADY GAIT, PT ASKING FOR PAIN MEDICATION, MADE AWARE OF NEXT DUE TIME.
--- NOTE | 2016-07-31 06:05 | NUR ---
MEDICATED PRN FOR PAIN WITH MORPHINE IVP, MONITORED CLOSELY.
--- NOTE | 2016-07-31 07:25 | NUR ---
PT AWAKE, NO DISTRESS NOTED, REPORT GIVEN TO DADA BA FOR CONTINUITY OF CARE.
--- NOTE | 2016-07-31 07:27 | NUR ---
RECEIVED REPORT FROM NIGHT RN. PATIENT RESTING IN BED. AAOX4. NO S/S OF DISTRESS. PT DENIES PAIN. IV SITE PATENT AND INTACT. CALL LIGHT WITHIN REACH. SAFETY MEASURES ENSURED. WILL CONTINUE TO MONITOR
[2016-07-31 08:00] VITALS: BP 125/70
--- NOTE | 2016-07-31 08:46 | NUR ---
PATIENT HAS BEEN SCREENED AND CATEGORIZED MODERATE NUTRITION RISK. PATIENT WILL BE SEEN WITHIN 3-5 DAYS OF ADMISSION. 08/02/16-08/04/[address]
[2016-07-31] MEDS ORDERED: METOPROLOL 25 MG TAB PO SCH (09:00)
[2016-07-31] MEDS ORDERED: ASPIRIN 81 MG TAB.CHEW PO SCH (09:00)
[2016-07-31] MEDS ORDERED: LISINOPRIL 5 MG TAB PO SCH (09:00)
[2016-07-31] MEDS ORDERED: HYDROXYCHLOROQUINE 200 MG TAB PO SCH (09:00)
[2016-07-31] MEDS ORDERED: FAMOTIDINE 20 MG TAB PO SCH (09:00)
[2016-07-31] MEDS ORDERED: PANTOPRAZOLE 40 MG INJ VIAL IVP SCH (09:00)
[2016-07-31] MEDS ORDERED: DULoxetine 30 MG CAPDR PO SCH (09:00)
--- NOTE | 2016-07-31 09:00 | NUR ---
CYMBALTA HELD DUE TO DOSE REQUIRING 0.[address] SWARTZ MADE AWARE.
--- NOTE | 2016-07-31 10:09 | NUR ---
SPOKE WITH TOREY FOSTER SHE SAID CRISTIAN GETS THE REVIEWS FAX REVIEW TO [phone]. NO CM ASSIGNED YET. PHONE [phone].
--- NOTE | 2016-07-31 10:14 | NUR ---
PT STATES HER PAIN 10/10. PT SAYS SHE IS ITCHY ALL OVER. PT STATES SHE WANTS TO GET BENADRYL FIRST BEFORE PAIN MEDICATIONS. DR. SWARTZ MADE AWARE. MORPHINE WASTED.
[2016-07-31 12:00] VITALS: BP 122/76
--- NOTE | 2016-07-31 12:33 | NUR ---
PATIENT STATES HER PAIN 10/10. GIVEN PAIN MEDICINE FOR RELIEF. NO S/S OF DISTRESS. WILL CONTINUE TO MONITOR PATIENT.
--- NOTE | 2016-07-31 15:20 | NUR ---
AMBULATING IN THE ROOM, VOIDS FREELY. NO COMPLAINTS OF PAIN AT THIS TIME. NO S/S OF DISTRESS. CALL LIGHT WITHIN REACH. WILL CONTINUE TO MONITOR PATIENT.
[2016-07-31 16:00] VITALS: BP 120/79
--- NOTE | 2016-07-31 16:41 | NUR ---
PATIENT COMPLAINED OF GENERALIZED PAIN OF 10/10. GIVEN PAIN MEDICATION FOR RELIEF. NO S/S OF DISTRESS AT THIS TIME. CALL LIGHT WITHIN REACH. WILL CONTINUE TO MONITOR FOR ANY CHANGES.
--- NOTE | 2016-07-31 19:14 | NUR ---
ENDORSED PLAN OF CARE TO NIGHT RN. PT REMAINS STABLE.
--- NOTE | 2016-07-31 19:27 | NUR ---
RECEIVED PT SITTING ON SIDE OF BED CRYING WITH BENADRYL PO ON HER HAND, PT STATED THE SHE IS LEAVING AGAINST MEDICAL ADVICE BECAUSE SHE WAS IN SEVERE PAIN AND ITCHY SINCE 1400 TODAY AND THE DOCTORS DOESN'T WANT TO CHANGE HER PRN MEDICATIONS, PER MEJIA RN DR MCLEAN AND DR SWARTZ WON'T CHANGE AND ADD ANY PRN MEDICATIONS AND PT WAS MADE AWARE OFF THIS ALREADY, TOLD PT REGARDING THE RISKS OF GOING AMA, PT SIGNED AMA FORM, ABOUT THE DISCONTINUE THE IV LINE BUT PT WANTS TO TALKED TO NUCLEAR MEDICINE TECH INGRID FIRST, DARRON AT BEDSIDE TALKING TO PT.
--- NOTE | 2016-07-31 19:55 | NUR ---
PT STILL WANTS TO GO AMA, IV LINE DISCONTINUED WITH TIP INTACT, PT REFUSED TO CUT HER ID BAND, PT AMBULATED OUT OF THE ROOM WITH STEADY GAIT WITH ALL HER BELONGINGS.
[2016-07-31] MEDS ORDERED: ATORVASTATIN 20 MG TAB PO SCH (21:00)
[2016-08-01] MEDS ORDERED: methylPREDNISolone SS 40 MG/ML VIAL IVP SCH (05:00)
[2016-08-04 07:53] LABS: COMPLEMENT C3 116 mg/dL (82-167); COMPLEMENT C4 18 mg/dL (14-44)
--- NOTE | 2016-08-04 12:44 | NUR ---
RECEIVED A CALL FROM ERIS FROM [facility]. MUSIC NOTE AND DISCHARGE SUMMARY FAXED TO HER AT [phone]
[2016-08-04 13:19] LABS: ANTI DOUBLE STRANDED DNA AB 1 IU/mL (0 - 9)
== END 2016-07-31 19:55 | disposition left against medical advice (07) | DRG 346 ==
LOC: MED 23:13 → MTU 07-31 00:44
PROVIDERS: ADMIT Family Medicine; ATTEND Family Medicine
DX: M32.9 Systemic lupus erythematosus, unspecified (principal); R56.9 Unspecified convulsions; E44.0 Moderate protein-calorie malnutrition; G90.9 Disorder of the autonomic nervous system, unspecified; F32.9 Major depressive disorder, single episode, unspecified; I10 Essential (primary) hypertension; D63.8 Anemia in other chronic diseases classified elsewhere; E11.9 Type 2 diabetes mellitus without complications; F41.9 Anxiety disorder, unspecified; E66.9 Obesity, unspecified; R42 Dizziness and giddiness; E02 Subclinical iodine-deficiency hypothyroidism; K21.9 Gastro-esophageal reflux disease without esophagitis; M94.0 Chondrocostal junction syndrome [Tietze]; E78.1 Pure hyperglyceridemia; Z53.21 Procedure and treatment not carried out due to patient leaving prior to being seen by health care provider; Z88.1 Allergy status to other antibiotic agents; Z88.8 Allergy status to other drugs, medicaments and biological substances; Z76.5 Malingerer [conscious simulation]; Z83.3 Family history of diabetes mellitus; Z68.39 Body mass index [BMI] 39.0-39.9, adult
CPT/HCPCS: 36415; 70450; 71010; 80053; 81001; 82150; 82248; 82550; 83036; 83690; 83735; 83880; 84100; 84439; 84443; 84484; 85025; 85610; 85651; 85730; 86140; 86160; 87040; 87081; 87086; 93005; 96372; 96374; 96375; 99285; C9113; J1200; J1644; J1720; J2270; J2405; J2543; J2930; J7030; J7060; Q0092; Q0163